=== PATIENT | female | born 1980 | race African-American/Black ===

== ENCOUNTER 2017-02-12 18:24 | Emergency (ER) | payer OTHER ==
[2017-02-12 18:28] VITALS: BP 112/82; PULSE 66; TEMP 98.1; BMI 33.8
--- NOTE | 2017-02-12 19:24 | PDOC ---
History of Present Illness - History of Present Illness Initial Comments: 02/12/17 20:48 The patient is a 36 year old female, with a significant past medical history of GI ulcers, H-pylori (diagnosed in 2016) who presents to the emergency department with recurrent abdominal pain. Patient states her epigastric tenderness worsens when supine. She said that she had an endoscopy done in 2015 and another one in April of this year. She stated that she began to feel better but her epigastric pain came back recently. She denies recent fevers, chills, headache or dizziness. She denies recent nausea, vomit, diarrhea or constipation. She denies recent dysuria, frequency, urgency or hematuria. She denies recent chest pain or shortness of breath. Allergies: shellfish, tramadol. Past surgical history: None reported. Social history: Nonsmoker. Denies EtOH use and recreational drug use. Primary Care Physician: David Garcia <Marian Kyle - Last Filed: 02/12/17 20:48> <Fernanda Nj - Last Filed: 02/12/17 22:28> - General Chief Complaint: Pain Stated Complaint: STOMACH PAIN Time Seen by Provider: 02/12/17 19:23 Past History <Marian Kyle - Last Filed: 02/12/17 20:48> - Past Medical History Asthma: Yes - Immunization History Td Vaccination: Yes - Suicide/Smoking/Psychosocial Hx Smoking Status: No Smoking History: Never smoked Years of Tobacco Use: 0 Number of Cigarettes Smoked Daily: 1 Cigars Per Day: 1 Information on smoking cessation initiated: Yes 'Breaking Loose' booklet given: 03/01/16 Hx Alcohol Use: No Drug/Substance Use Hx: No Substance Use Type: None <Fernanda Nj - Last Filed: 02/12/17 22:28> - Past Medical History Allergies/Adverse Reactions: Allergies Allergy/AdvReac Type Severity Reaction Status Date / Time shellfish derived Allergy Severe Difficulty Verified 02/12/17 18:28 Breathing tramadol Allergy Severe Vomiting Verified 02/12/17 18:28 Home Medications: Ambulatory Orders Albuterol Sulfate Inhaler - [Ventolin HFA Inhaler -] 1 - 2 inh PO QID PRN Famotidine [Pepcid] 40 mg PO DAILY #10 tablet 03/02/16 Acetaminophen [Tylenol] 650 mg PO DAILY PRN 03/18/16 Ibuprofen [Motrin -] 600 mg PO QID #28 tablet 04/16/16 Review of Systems - Review of Systems Able to Perform ROS?: Yes Comments:: 02/12/17 20:48 CONSTITUTIONAL: Absent: fever, no chills, no fatigue EYES: Absent: visual changes ENT: Absent: ear pain, no sore throat CARDIOVASCULAR: Absent: chest pain, no palpitations RESPIRATORY: Absent: cough, no SOB GI: Present: abdominal pain Absent: no nausea, no vomiting, no constipation, no diarrhea GENITOURINARY: Absent: dysuria, no frequency, no hematuria MUSCULOSKELETAL: Absent: back pain, no arthralgia, no myalgia SKIN: Absent: rash NEURO: Absent: headache <Marian Kyle - Last Filed: 02/12/17 20:48> *Physical Exam - Vital Signs Last Vital Signs Temp Pulse Resp BP Pulse Ox 98.1 F 66 18 112/82 98 02/12/17 18:26 02/12/17 18:26 02/12/17 18:26 02/12/17 18:26 02/12/17 18:26 - Physical Exam Comments: 02/12/17 20:48 GENERAL: Well-appearing, well-nourished. No apparent distress. HEENT: Normocephalic, atraumatic. PERRL, EOM intact. CARDIOVASCULAR: Normal S1, S2. Regular rate and rhythm. PULMONARY: Clear to auscultation bilaterally. ABDOMEN: +epigastric tenderness & discomfort. No guarding, no rebound. Soft, non- distended. EXTREMITIES: Normal ROM in all four extremities. No gross deformities. SKIN: Warm, dry. No rash NEUROLOGICAL: No focal neurological deficits. <Marian Kyle - Last Filed: 02/12/17 20:48> - Vital Signs Last Vital Signs Temp Pulse Resp BP Pulse Ox 98.1 F 66 18 112/82 98 02/12/17 18:26 02/12/17 18:26 02/12/17 18:26 02/12/17 18:26 02/12/17 18:26 <Fernanda Nj - Last Filed: 02/12/17 22:28> ED Treatment Course - LABORATORY CBC & Chemistry Diagram: 02/12/17 20:36 02/12/17 20:36 - ADDITIONAL ORDERS Additional order review: 02/12/17 20:36 RBC 4.18 MCV 81.9 MCHC 33.4 RDW 15.8 H MPV 7.2 L Neutrophils % 61.6 Lymphocytes % 30.5 Monocytes % 5.8 Eosinophils % 1.7 Basophils % 0.4 - Medications Given in the ED: ED Medications Discontinued Medications Generic Name Dose Route Start Last Admin Trade Name Angelito PRN Reason Stop Dose Admin Al Hydroxide/Mg Hydroxide 30 ml 02/12/17 20:15 02/12/17 20:43 Mylanta Suspension - PO 02/12/17 20:16 30 ml ONCE ONE Administration Ranitidine HCl 150 mg 02/12/17 20:17 02/12/17 20:43 Zantac - PO 02/12/17 20:18 150 mg ONCE ONE Administration <Marian Kyle - Last Filed: 02/12/17 20:48> - LABORATORY CBC & Chemistry Diagram: 02/12/17 20:36 02/12/17 20:36 <Fernanda Nj - Last Filed: 02/12/17 22:28> Medical Decision Making - Medical Decision Making 02/12/17 20:08 36 yo female has had 2 days of epigastric pain that is nonradiating. DENIES nausea ,vomiting or diarrhea, fever or chills, substernal chest pain or shortness of breath. She denies that the pain radiates to her back. She has no back pain at this time HPI H Pylori and had 2 endoscopies the last one being Apr 2016. Her GI specialist has had her on amytripyline for her GI symptoms PSH none -She had a gallbladder ultrasound done here February 2016 that was totally unremarkable abd exam is essentially benign plan labs 02/12/17 22:11 CBC, chemistries are within normal limits. 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 <Fernanda Nj - Last Filed: 02/12/17 22:28> *DC/Admit/Observation/Transfer - Attestations Scribe Attestion: 02/12/17 20:49 Documentation prepared by Marian Kyle, acting as medical doctor md for Fernanda Nj MD <Marian Kyle - Last Filed: 02/12/17 20:48> <ClemFernanda Nvaarro - Last Filed: 02/12/17 22:28> Diagnosis at time of Disposition: Epigastric pain - Discharge Dispostion Disposition: HOME Condition at time of disposition: Stable - Referrals Referrals: David Garcia MD [Primary Care Provider] - - Patient Instructions Printed Discharge Instructions: DI for Epigastric Pain Additional Instructions: It is important to follow up with your stomach doctor for further evaluation of you abdominal pain Return for any worsening symptoms
[2017-02-12] MEDS ORDERED: MAG HYDROX/AL HYDROX/SIMETH 355 ML ORAL.SUSP PO ONE (20:15)
[2017-02-12] MEDS ORDERED: RANITIDINE HCL 150 MG TABLET (FP) PO ONE (20:17)
[2017-02-12 20:42] LABS: BASOPHIL 0.4 % (0-2.0); EOSINOPHIL 1.7 % (0-4.5); MCH 27.4 pg (25.7-33.7); MCHC 33.4 g/dl (32.0-36.0); MEAN CELL VOLUME 81.9 fl (80-96); MEAN PLT VOLUME 7.2 fl (7.5-11.1); NEUTROPHILS 61.6 % (42.8-82.8); PLATELET COUNT 294 K/MM3 (134-434); RDW 15.8 % (11.6-15.6)
[2017-02-12] MEDS ORDERED: MAG HYDROX/AL HYDROX/SIMETH 30 ML UNIT-DOSE CUP ONE (20:50)
[2017-02-12] MEDS ORDERED: RANITIDINE HCL 150 MG TABLET (FP) ONE (20:50)
[2017-02-12 21:06] LABS: ALBUMIN 3.6 g/dl (3.4-5.0); ALK PHOS 70 U/L (45-117); ANION GAP 8 (8-16); BILIRUBIN,TOTAL 0.4 mg/dL (0.2-1.0); CALCIUM 8.8 mg/dL (8.5-10.1); CO2 23 mmol/L (21-32); CREATININE 0.6 mg/dL (0.55-1.02); GLUCOSE,RANDOM 109 mg/dL (74-106); SGOT/AST 10 U/L (15-37); SGPT/ALT 21 U/L (12-78); TOT PROT 6.8 g/dl (6.4-8.2)
== END 2017-02-12 23:15 | disposition home or self-care (01) ==
LOC: JER 18:24
DX: R10.13 Epigastric pain (principal); J45.909 Unspecified asthma, uncomplicated; Z72.0 Tobacco use
CPT/HCPCS: 36415; 80053; 83690; 85025; 99282-25

== ENCOUNTER 2017-04-15 02:33 | Emergency (ER) | payer OTHER ==
[2017-04-15] MEDS ORDERED: KETOROLAC TROMETHAMINE 15 MG/ML VIAL IM ONE (03:35)
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
[2017-04-15 04:13] VITALS: BP 124/75; PULSE 77; TEMP 98.7; BMI 33.8
[2017-04-15] MEDS ORDERED: KETOROLAC TROMETHAMINE 30 MG/1 ML VIAL ONE (05:30)
[2017-04-15] MEDS ORDERED: KETOROLAC TROMETHAMINE 15 MG/ML VIAL ONE (05:37)
[2017-04-15] MEDS ORDERED: IBUPROFEN 400 MG TABLET (FP) PO ONE ×2 (05:40→05:41)
== END 2017-04-15 06:13 | disposition home or self-care (01) ==
LOC: JER 02:33
PROC: 3E0233Z Introduction of Anti-inflammatory into Muscle, Percutaneous Approach (ICD-10-PCS; principal; 2017-04-15)
DX: M54.5 Low back pain (principal); V43.52XA Car driver injured in collision with other type car in traffic accident, initial encounter; Y93.89 Activity, other specified; Y92.410 Unspecified street and highway as the place of occurrence of the external cause; J45.909 Unspecified asthma, uncomplicated
CPT/HCPCS: 72100-TC; 84703; 99282-25

== ENCOUNTER 2017-06-10 20:00 | Emergency (ER) | payer SELFPAY ==
[2017-06-10] MEDS ORDERED: ASPIRIN 81 MG CHEWABLE TABLETS PO ONE (20:30)
--- NOTE | 2017-06-10 20:31 | PDOC ---
Rapid Medical Evaluation Medical Evaluation: Allergies Allergy/AdvReac Type Severity Reaction Status Date / Time shellfish derived Allergy Severe Difficulty Verified 02/12/17 18:28 Breathing tramadol Allergy Severe Vomiting Verified 02/12/17 18:28 06/10/17 20:26 I have performed a brief in-person evaluation of this patient. The patient presents with a chief complaint of: radiating R arm pain since last week, chest "tightness" today, chills, cough since yesterday, hx of asthma Pertinent physical exam findings: lungs ctab, RR 30 I have ordered the following: labs, ekg, cxr The patient will proceed to the ED for further evaluation. Discharge Disposition - Diagnosis Chest pain - Referrals - Patient Instructions - Post Discharge Activity
[2017-06-10] MEDS ORDERED: ASPIRIN 81 MG CHEWABLE TABLETS ONE (20:37)
[2017-06-10 20:39] VITALS: BMI 29.6
[2017-06-10 21:00] LABS: BASO % 0.5 % (0-2.0); EOS % 1.9 % (0-4.5); HEMATOCRIT 38.6 % (32.4-45.2); HEMOGLOBIN 12.6 GM/dL (10.7-15.3); LYMPH % 13.5 % (8-40); MCH 27.2 pg (25.7-33.7); MCHC 32.7 g/dl (32.0-36.0); MEAN CELL VOLUME 83.2 fl (80-96); MEAN PLT VOLUME 7.5 fl (7.5-11.1); MONO % 11.1 % (3.8-10.2); PLATELET COUNT 340 K/MM3 (134-434); RBC 4.64 M/mm3 (3.60-5.2); RDW 15.9 % (11.6-15.6); WHITE BLOOD COUNT 5.8 K/mm3 (4.0-10.0)
[2017-06-10 21:22] LABS: INR 1.17 (0.82-1.09); PROTHROMBIN TIME (PATIENT) 13.2 SEC (9.98-11.88)
[2017-06-10 21:29] LABS: ANION GAP 6 (8-16); BILIRUBIN,TOTAL 0.2 mg/dL (0.2-1.0); BLOOD UREA NITROGEN 11 mg/dL (7-18); CALCIUM 8.7 mg/dL (8.5-10.1); CHLORIDE 103 mmol/L (98-107); CO2 28 mmol/L (21-32); CREATININE 0.8 mg/dL (0.55-1.02); GLUCOSE,RANDOM 157 mg/dL (74-106); MAGNESIUM 1.7 mg/dL (1.8-2.4); POTASSIUM 4.1 mmol/L (3.5-5.1); SGOT/AST 10 U/L (15-37); SGPT/ALT 21 U/L (12-78); SODIUM 137 mmol/L (136-145); TOT PROT 7.8 g/dl (6.4-8.2)
[2017-06-10 21:31] LABS: ALK PHOS 90 U/L (45-117)
--- NOTE | 2017-06-10 21:59 | PDOC ---
History of Present Illness - General Chief Complaint: Chest Pain Stated Complaint: CHEST PAIN Time Seen by Provider: 06/10/17 20:31 - History of Present Illness Initial Comments: 06/10/17 22:01 Ms. Thompson is a 37 yo female w/ pmh of GI ulcers and H-pylori (diagnosed in 2016) who presents c/o a 1 day history of dry cough with fever, chills, nausea, and body aches. She reports that she does not have any energy and that she feels "flu-pamela." She also complains of midline chest pain over this same time period. Ms. Thompson also reports a 1 week history of right arm pain that she says started as a muscle spasm and has progressed to involve any movement involving her right shoulder. The patient denies headache and dizziness. Denies vomit, diarrhea and constipation. Denies dysuria, frequency, urgency and hematuria. Allergies: Shellfish, tramadol Past History - Past Medical History Allergies/Adverse Reactions: Allergies Allergy/AdvReac Type Severity Reaction Status Date / Time shellfish derived Allergy Severe Difficulty Verified 02/12/17 18:28 Breathing tramadol Allergy Severe Vomiting Verified 02/12/17 18:28 Home Medications: Ambulatory Orders Albuterol Sulfate Inhaler - [Ventolin HFA Inhaler -] 1 - 2 inh PO QID PRN Acetaminophen [Tylenol] 650 mg PO DAILY PRN 03/18/16 Oseltamivir Phosphate [Tamiflu] 75 mg PO BID #10 capsule 06/10/17 Asthma: Yes COPD: No - Immunization History Td Vaccination: Yes - Suicide/Smoking/Psychosocial Hx Smoking Status: No Smoking History: Never smoked Years of Tobacco Use: 0 Have you smoked in the past 12 months: No Number of Cigarettes Smoked Daily: 1 Cigars Per Day: 1 Information on smoking cessation initiated: No 'Breaking Loose' booklet given: 03/01/16 Hx Alcohol Use: No Drug/Substance Use Hx: No Substance Use Type: None Review of Systems - Review of Systems Comments:: 06/10/17 22:14 GENERAL/CONSTITUTIONAL: +Subjective fever and chills with generalized weakness feeling.. HEAD, EYES, EARS, NOSE AND THROAT: No change in vision. No ear pain or discharge. No sore throat. CARDIOVASCULAR: +Midline chest pain with associated cough. RESPIRATORY: No wheezing or hemoptysis. GASTROINTESTINAL: +Nausea without vomiting, diarrhea or constipation. GENITOURINARY: No dysuria, frequency, or change in urination. MUSCULOSKELETAL: +Generalized body aches SKIN: No rash NEUROLOGIC: No headache, vertigo, loss of consciousness, or change in strength/ sensation. ENDOCRINE: No increased thirst. No abnormal weight change HEMATOLOGIC/LYMPHATIC: No anemia, easy bleeding, or history of blood clots. ALLERGIC/IMMUNOLOGIC: No hives or skin allergy. *Physical Exam - Vital Signs Last Vital Signs Temp Pulse Resp BP Pulse Ox 98.9 F 100 H 30 H 126/77 100 06/10/17 20:31 06/10/17 20:31 06/10/17 20:31 06/10/17 20:31 06/10/17 20:31 - Physical Exam Comments: 06/10/17 22:15 GENERAL: Awake, alert, and fully oriented, in no acute distress HEAD: No signs of trauma, normocephalic, atraumatic EYES: PERRLA, EOMI, sclera anicteric, conjunctiva clear ENT: Auricles normal inspection, hearing grossly normal, nares patent, oropharynx clear without exudates. Moist mucosa NECK: Normal ROM, supple, no lymphadenopathy, JVD, or masses LUNGS: +Reproducible chest pain to mid sternum. No distress, speaks full sentences, clear to auscultation bilaterally HEART: Regular rate and rhythm, normal S1 and S2, no murmurs, rubs or gallops, peripheral pulses normal and equal bilaterally. ABDOMEN: Soft, nontender, normoactive bowel sounds. No guarding, no rebound. No masses EXTREMITIES: +R Shoulder tender to palpation. Cooperation incomplete due to pain for proper strength assessment. Normal inspection, no edema. No clubbing or cyanosis. NEUROLOGICAL: Cranial nerves II through XII grossly intact. Normal speech, normal gait, no focal sensorimotor deficits SKIN: Warm, Dry, normal turgor, no rashes or lesions noted. ED Treatment Course - LABORATORY CBC & Chemistry Diagram: 06/10/17 20:44 06/10/17 20:44 - ADDITIONAL ORDERS Additional order review: Laboratory Results 06/10/17 06/10/17 06/10/17 20:44 20:44 20:44 PT with INR 13.20 H INR 1.17 H Sodium 137 Potassium 4.1 Chloride 103 Carbon Dioxide 28 Anion Gap 6 L BUN 11 Creatinine 0.8 Creat Clearance w eGFR > 60 Random Glucose 157 H Calcium 8.7 Magnesium 1.7 L Total Bilirubin 0.2 D AST 10 L ALT 21 Alkaline Phosphatase 90 Creatine Kinase 149 Troponin I < 0.02 Total Protein 7.8 Albumin 4.0 Urine HCG, Qual Negative 06/10/17 20:44 RBC 4.64 MCV 83.2 MCHC 32.7 RDW 15.9 H MPV 7.5 Neutrophils % 73.0 Lymphocytes % 13.5 D Monocytes % 11.1 H D Eosinophils % 1.9 Basophils % 0.5 Medical Decision Making - Medical Decision Making 06/10/17 22:47 Ms. Thompson is a 37 yo female presenting w/ symptoms c/w influenza. Labs grossly normal as below. Tamiflu given for treatment. R shoulder xray ordered for evaluation of R arm pain/weakness. CXR negative for acute pathology. Right shoulder positive for tendonitis on XR. Ortho f/u provided. Discharging patient to home. Laboratory Results - last 24 hr 06/10/17 06/10/17 06/10/17 20:44 20:44 20:44 WBC 5.8 RBC 4.64 Hgb 12.6 D Hct 38.6 MCV 83.2 MCH 27.2 MCHC 32.7 RDW 15.9 H Plt Count 340 MPV 7.5 Neutrophils % 73.0 Lymphocytes % 13.5 D Monocytes % 11.1 H D Eosinophils % 1.9 Basophils % 0.5 PT with INR 13.20 H INR 1.17 H Sodium 137 Potassium 4.1 Chloride 103 Carbon Dioxide 28 Anion Gap 6 L BUN 11 Creatinine 0.8 Creat Clearance w eGFR > 60 Random Glucose 157 H Calcium 8.7 Magnesium 1.7 L Total Bilirubin 0.2 D AST 10 L ALT 21 Alkaline Phosphatase 90 Creatine Kinase 149 Troponin I < 0.02 Total Protein 7.8 Albumin 4.0 Urine HCG, Qual 06/10/17 20:44 WBC RBC Hgb Hct MCV MCH MCHC RDW Plt Count MPV Neutrophils % Lymphocytes % Monocytes % Eosinophils % Basophils % PT with INR INR Sodium Potassium Chloride Carbon Dioxide Anion Gap BUN Creatinine Creat Clearance w eGFR Random Glucose Calcium Magnesium Total Bilirubin AST ALT Alkaline Phosphatase Creatine Kinase Troponin I Total Protein Albumin Urine HCG, Qual Negative *DC/Admit/Observation/Transfer Diagnosis at time of Disposition: Tendonitis Chest pain Qualifiers: Chest pain type: unspecified Qualified Code(s): R07.9 - Chest pain, unspecified - Discharge Dispostion Disposition: HOME - Prescriptions Prescriptions: Oseltamivir Phosphate [Tamiflu] 75 mg PO BID #10 capsule - Referrals Referrals: Raymond Rico MD [Staff Physician] - - Patient Instructions Printed Discharge Instructions: DI for Atypical Chest Pain, DI for Influenza - - Adult, DI for Tendinitis Additional Instructions: You were evaluated today in the ER and found to have influenza. A prescription for tamiflu has been called to your pharmacy to shorten flu course. You were also noted to have tendonitis on x-ray. Please make follow-up appointment with provided orthopedics information for outpatient evaluation. Please return if any return of fever, pain, or other concerning symptoms. - Post Discharge Activity
[2017-06-10] MEDS ORDERED: KETOROLAC TROMETHAMINE 60 MG/2 ML VIAL IM ONE (22:19)
[2017-06-10] MEDS ORDERED: ACETAMINOPHEN 500 MG TABLET (FP) PO ONE (22:23)
[2017-06-10] MEDS ORDERED: OSELTAMIVIR PHOSPHATE 75 MG CAPSULE PO ONE (22:30)
[2017-06-10] MEDS ORDERED: ACETAMINOPHEN 325 MG TABLET (FP) ONE (22:35)
[2017-06-10] MEDS ORDERED: OSELTAMIVIR PHOSPHATE 75 MG CAPSULE ONE (23:07)
[2017-06-11 01:04] VITALS: BP 110/76; PULSE 92; TEMP 98.4
--- NOTE | 2017-06-11 08:54 | EKG ---
Test Reason : Blood Pressure : / mmHG Vent. Rate : 099 BPM Atrial Rate : 099 BPM P-R Int : 150 ms QRS Dur : 078 ms QT Int : 338 ms P-R-T Axes : 030 041 030 degrees QTc Int : 433 ms NORMAL SINUS RHYTHM NONSPECIFIC T WAVE ABNORMALITY ABNORMAL ECG NO PREVIOUS ECGS AVAILABLE Confirmed by Rafat Singer MD ([id number]) on 06/11/2017 8:53:47 AM Referred By: Confirmed By:Rafat Singer MD
== END 2017-06-11 01:04 | disposition home or self-care (01) ==
LOC: JER 20:00
DX: R07.89 Other chest pain (principal); M75.81 Other shoulder lesions, right shoulder; J11.1 Influenza due to unidentified influenza virus with other respiratory manifestations
CPT/HCPCS: 36415; 71046-TC-FY; 73030-TC-RT-FY; 80053; 82550; 83735; 84484; 84703; 85025; 85610; 93005; 93010; 99284-25

== ENCOUNTER 2018-01-18 23:06 | Emergency (ER) | payer SELFPAY ==
[2018-01-18 23:10] VITALS: BP 118/75; PULSE 72; TEMP 98.2; BMI 35.4
[2018-01-18] MEDS ORDERED: DIPHTH,PERTUSS(ACELL),TET 0.5 ML DISP.SYRIN IM ONE (23:23)
--- NOTE | 2018-01-18 23:23 | PDOC ---
History of Present Illness - General Chief Complaint: Bite Stated Complaint: BIT BY DOG Time Seen by Provider: 01/18/18 23:15 History Source: Patient Exam Limitations: No Limitations - History of Present Illness Initial Comments: 01/19/18 00:33 Best Contact: PCP: N/A Pmhx: Asthma Pshx: 0 Allergies: Tramadol/hives/itch FH:0 Social Hx: Cigarettes/ social Alcohol/ Social Drugs/0 LMP: 12/29/2017 37-year-old female who is right hand dominant presents to the ER complaining of a dog bite to the left hand. Patient states while playing with her pitbull who' s immunizations are up-to-date. Her dog accidentally bit her left hand approximately one hour ago. Patient denies extremity numbness or tingling sensation. Pain is described as 8/10 sharp nonradiating intermittent discomfort patient states the pain is exacerbated on touch and alleviated at rest. Patient states unknown last tetanus Past History - Past Medical History Allergies/Adverse Reactions: Allergies Allergy/AdvReac Type Severity Reaction Status Date / Time shellfish derived Allergy Severe Difficulty Verified 01/18/18 23:10 Breathing tramadol Allergy Severe Vomiting Verified 01/18/18 23:10 Home Medications: Ambulatory Orders Albuterol Sulfate Inhaler - [Ventolin HFA Inhaler -] 1 - 2 inh PO QID PRN Acetaminophen [Tylenol] 650 mg PO DAILY PRN 03/18/16 Oseltamivir Phosphate [Tamiflu] 75 mg PO BID #10 capsule 06/10/17 Amoxicillin/Potassium Clav [Augmentin 875-125 Tablet] 1 each PO BID #10 tablet 01/18/18 Anemia: No Asthma: Yes Cancer: No Cardiac Disorders: No CVA: No COPD: No DVT: No Dementia: No Diabetes: No Dialysis: No GI Disorders: Yes (Gastric Ulcers) Disorders: No HTN: No Hypercholesterolemia: No Kidney Stones: No Liver Disease: No Psychiatric Problems: No Seizures: No Thyroid Disease: No Lung CA: No - Immunization History Td Vaccination: Yes - Suicide/Smoking/Psychosocial Hx Smoking Status: No Smoking History: Never smoked Years of Tobacco Use: 0 Have you smoked in the past 12 months: Yes Number of Cigarettes Smoked Daily: 1 Cigars Per Day: 1 'Breaking Loose' booklet given: 03/01/16 Hx Alcohol Use: No Drug/Substance Use Hx: No Substance Use Type: None Trauma Specific PMHX - Complaint Specific PMHX Arthritis: No Back Injury: No Neck Injury: No Hx Sacro Iliac Joint Dysfunction: No Review of Systems - Review of Systems Able to Perform ROS?: Yes Comments:: 01/19/18 00:43 CONSTITUTIONAL: Absent: fever, chills, diaphoresis, generalized weakness, malaise, loss of appetite MUSCULOSKELETAL: Left hand pw / dorsal pain to 3rd mc/distal Denies any numbness/tingling Absent: myalgia, arthralgia, joint swelling SKIN: Absent: rash, itching, pallor HEMATOLOGIC/IMMUNOLOGIC: Absent: easy bleeding, easy bruising, lymphadenopathy, frequent infections Is the patient limited Lithuanian proficient: No *Physical Exam - Vital Signs Last Vital Signs Temp Pulse Resp BP Pulse Ox 98.2 F 72 18 118/75 98 01/18/18 23:09 01/18/18 23:09 01/18/18 23:09 01/18/18 23:01/18/18 23:09 - Physical Exam Comments: 01/19/18 00:44 GENERAL: Well developed, well nourished. Awake and alert. No acute distress. MUSCULOSKELETAL Left hand PW to dorsal 3rd distal mc 2 point discrimination intact F.R.O.M. cap refill <2sec neg lymphangitis Normal range of motion at all joints. No bony deformities or tenderness. No CVA tenderness. EXTREMITIES: No cyanosis. No clubbing. No edema. No calf tenderness. SKIN: Warm and dry. Normal capillary refill. No rashes. No jaundice. Procedure: left hand dorsal 3rd distal mc+PW Betadine prep 1% lidocaine=1.5cc NS /betadine irrgation /copious Telfa kerlix ED Treatment Course - RADIOLOGY Radiograph Interpretation: 01/19/18 00:39 Xray left hand 3c neg FB, FX *DC/Admit/Observation/Transfer Diagnosis at time of Disposition: Dog bite of left hand Qualifiers: Encounter type: initial encounter Qualified Code(s): S61.452A - Open bite of left hand, initial encounter - Discharge Dispostion Disposition: HOME Condition at time of disposition: Stable Decision to Admit order: No - Prescriptions Prescriptions: Amoxicillin/Potassium Clav [Augmentin 875-125 Tablet] 1 each PO BID #10 tablet - Referrals Referrals: Riccardo Garcia MD [Staff Physician] - - Patient Instructions Printed Discharge Instructions: How to Care for a Domestic Animal Bite, DI for Dog Bite Additional Instructions: It is important to keep your left hand elevated. Follow-up with a hand surgeon listed on your discharge this week Return back to the emergency department in 2 days for wound check Return back to the ER for any signs of infection: Red streaks, swelling, severe pain or numbness . - Post Discharge Activity
[2018-01-18] MEDS ORDERED: AMOX TR/POT CLAV 875MG/125MG TABLETS (FP) PO ONE (23:24)
[2018-01-18] MEDS ORDERED: AMOX TR/POT CLAV 875MG/125MG TABLETS (FP) ONE (23:55)
== END 2018-01-19 01:26 | disposition home or self-care (01) ==
LOC: JER 23:06 → JERFT 23:06
DX: S61.452A Open bite of left hand, initial encounter (principal); W54.0XXA Bitten by dog, initial encounter; Y93.K9 Activity, other involving animal care; Y92.038 Other place in apartment as the place of occurrence of the external cause; Y99.8 Other external cause status
CPT/HCPCS: 73130-TC-LR-FY; 90715; 99281-25

== ENCOUNTER 2018-01-22 14:56 | Emergency (ER) | payer SELFPAY ==
[2018-01-22 15:03] VITALS: BP 117/72; PULSE 66; TEMP 98.1; BMI 35.4
--- NOTE | 2018-01-22 15:04 | PDOC ---
Rapid Medical Evaluation Chief Complaint: Revisit,Wound Recheck Time Seen by Provider: 01/22/18 15:00 Medical Evaluation: Allergies Allergy/AdvReac Type Severity Reaction Status Date / Time shellfish derived Allergy Severe Difficulty Verified 01/18/18 23:10 Breathing tramadol Allergy Severe Vomiting Verified 01/18/18 23:10 01/22/18 15:00 I have performed a brief in-person evaluation of this patient. The patient presents with a chief complaint of:follow up wound check left hand dog bite seen here saturday night . Pertinent physical exam findings: left hand pain dorsal surface with healing wound approximately 0.5cm scabbed, no redness no drainage I have ordered the following:nothing The patient will proceed to the ED for further evaluation.
--- NOTE | 2018-01-22 15:09 | PDOC ---
Suture Removal/Wound Check HPI - History of Present Illness Chief Complaint: Revisit,Wound Recheck Stated Complaint: WOUND CHECK Time Seen by Provider: 01/22/18 15:00 History Source: Yes: Patient Exam Limitations: Yes: No Limitations Treated at: [facility] ED - Previous ED Treatment Type of procedure performed on last visit: Yes: Other (dog bite) Tetanus Immunization: Yes: Up to Date, Given at last ED visit Antibiotics Prescribed: Yes (augmentin) - Onset of Previous Treatment Date of Occurence: 01/18/18 Past History - Past Medical History Allergies/Adverse Reactions: Allergies Allergy/AdvReac Type Severity Reaction Status Date / Time shellfish derived Allergy Severe Difficulty Verified 01/22/18 15:03 Breathing tramadol Allergy Severe Vomiting Verified 01/22/18 15:03 Home Medications: Ambulatory Orders Albuterol Sulfate Inhaler - [Ventolin HFA Inhaler -] 1 - 2 inh PO QID PRN Acetaminophen [Tylenol] 650 mg PO DAILY PRN 03/18/16 Oseltamivir Phosphate [Tamiflu] 75 mg PO BID #10 capsule 06/10/17 Amoxicillin/Potassium Clav [Augmentin 875-125 Tablet] 1 each PO BID #10 tablet 01/18/18 Anemia: No Asthma: Yes Cancer: No Cardiac Disorders: No CVA: No COPD: No DVT: No Dementia: No Diabetes: No Dialysis: No GI Disorders: Yes (Gastric Ulcers) Disorders: No HTN: No Hypercholesterolemia: No Kidney Stones: No Liver Disease: No Psychiatric Problems: No Seizures: No Thyroid Disease: No Lung CA: No - Immunization History Td Vaccination: Yes - Suicide/Smoking/Psychosocial Hx Smoking Status: No Smoking History: Never smoked Years of Tobacco Use: 0 Have you smoked in the past 12 months: Yes Number of Cigarettes Smoked Daily: 1 Cigars Per Day: 1 Information on smoking cessation initiated: Yes 'Breaking Loose' booklet given: 01/22/18 Hx Alcohol Use: No Drug/Substance Use Hx: No Substance Use Type: None Suture Removal/Wound Check PE - Physical Exam Laceration/Wound Check Symptoms: reports: Pain, Improved Comments: 01/22/18 15:06 left hand dorsal surface with 0.5cm healing dog bite, no redness no drainage no fluctuance , nv intact FROM of the hand Current Severity Level: Moderate Maximum Severity Level: Severe Location of Laceration/Wound: left: Hand (dorsal surface 0.5cm ) *Review of Systems - Review of Systems Able to Perform ROS?: Yes Constitutional: No: Symptoms Reported HEENTM: No: Recent change in vision *Physical Exam - Vital Signs Last Vital Signs Temp Pulse Resp BP Pulse Ox 98.1 F 66 17 117/72 100 01/22/18 15:00 01/22/18 15:00 01/22/18 15:00 01/22/18 15:00 01/22/18 15:00 - Physical Exam General Appearance: Yes: Nourished, Appropriately Dressed Integumentary: positive: Normal Color, Dry, Warm, Other (left dorsal surface with well healed 0.5cm bite , scabbed, no drainage no discharge no erythema ) Neurologic: positive: Alert, Normal Mood/Affect, Motor Strength 5/5 Medical Decision Making - Medical Decision Making 01/22/18 15:07 cc: wound check dog bite to hand well healed improving continue antibiotics *DC/Admit/Observation/Transfer Diagnosis at time of Disposition: Visit for wound check - Discharge Dispostion Disposition: HOME Condition at time of disposition: Improved - Referrals - Patient Instructions Additional Instructions: continue all the antibiotics wash daily with antibacterial soap and water such as Dial or Lever 2000 apply a thin layer of bacitracin once a day to the wound Return if any worsening symptoms - Post Discharge Activity
== END 2018-01-22 15:20 | disposition home or self-care (01) ==
LOC: JERFT 14:56
DX: Z48.00 Encounter for change or removal of nonsurgical wound dressing (principal)
CPT/HCPCS: 99281-25

== ENCOUNTER 2018-08-26 14:15 | Emergency (ER) | payer SELFPAY ==
[2018-08-26] MEDS ORDERED: SODIUM CHLORIDE 1,000 ML IV STA (14:19)
--- NOTE | 2018-08-26 14:22 | PDOC ---
Rapid Medical Evaluation Time Seen by Provider: 08/26/18 14:18 Medical Evaluation: Allergies Allergy/AdvReac Type Severity Reaction Status Date / Time shellfish derived Allergy Severe Difficulty Verified 01/22/18 15:03 Breathing tramadol Allergy Severe Vomiting Verified 01/22/18 15:03 08/26/18 14:18 I have performed a brief in-person evaluation of this patient. The patient presents with a chief complaint of: polyuria and polydipsia. Had FS> 500 at home Pertinent physical exam findings: MM moist. VSS. AF. No CVAT. I have ordered the following: labs, urine The patient will proceed to the ED for further evaluation. 08/26/18 14:21 Discharge Disposition - Diagnosis Frequency of urination and polyuria - Referrals - Patient Instructions - Post Discharge Activity
[2018-08-26 14:23] VITALS: BMI 35.6
--- NOTE | 2018-08-26 14:54 | PDOC ---
History of Present Illness - General Chief Complaint: Blood Sugar Problem Stated Complaint: HIGH BLOOD SUGAR Time Seen by Provider: 08/26/18 14:18 History Source: Patient - History of Present Illness Timing/Duration: other Past History - Past Medical History Allergies/Adverse Reactions: Allergies Allergy/AdvReac Type Severity Reaction Status Date / Time shellfish derived Allergy Severe Difficulty Verified 08/26/18 14:18 Breathing tramadol Allergy Severe Vomiting Verified 08/26/18 14:18 Home Medications: Ambulatory Orders Albuterol Sulfate Inhaler - [Ventolin HFA Inhaler -] 1 - 2 inh PO QID PRN Metformin HCl [Glucophage] 500 mg PO BID #60 tablet 08/26/18 Anemia: No Asthma: Yes Cancer: No Cardiac Disorders: No CVA: No COPD: No DVT: No Dementia: No Diabetes: No Dialysis: No GI Disorders: Yes (Gastric Ulcers) Disorders: No HTN: No Hypercholesterolemia: No Kidney Stones: No Liver Disease: No Psychiatric Problems: No Seizures: No Thyroid Disease: No Lung CA: No - Immunization History Td Vaccination: Yes - Suicide/Smoking/Psychosocial Hx Smoking Status: No Smoking History: Current some day smoker Years of Tobacco Use: 0 Have you smoked in the past 12 months: Yes Number of Cigarettes Smoked Daily: 1 Cigars Per Day: 1 Information on smoking cessation initiated: No 'Breaking Loose' booklet given: 01/22/18 Hx Alcohol Use: No Drug/Substance Use Hx: No Substance Use Type: None Review of Systems - Review of Systems Constitutional: No: Chills, Fever, Malaise, Weakness ABD/GI: No: Nausea, Vomiting, Abdominal cramping : No: Dysuria Endocrine: Yes: Increased Thirst, Increased Urine. No: Change in Weight *Physical Exam - Vital Signs Last Vital Signs Temp Pulse Resp BP Pulse Ox 97.9 F 75 18 121/73 98 08/26/18 14:19 08/26/18 14:19 08/26/18 14:19 08/26/18 14:08/26/18 14:19 - Physical Exam General Appearance: Yes: Appropriately Dressed. No: Apparent Distress HEENT: positive: Normal Voice Neck: positive: Supple Respiratory/Chest: negative: Respiratory Distress Gastrointestinal/Abdominal: positive: Soft. negative: Tender Musculoskeletal: negative: CVA Tenderness Integumentary: negative: Dry, Warm Neurologic: positive: Fully Oriented, Alert, Normal Mood/Affect ED Treatment Course - LABORATORY CBC & Chemistry Diagram: 08/26/18 15:42 08/26/18 15:42 Medical Decision Making - Medical Decision Making 08/26/18 14:54 38 yo F, h/o asthma, p/w 3 weeks of polydipsia, polyuria and blurry vision. States her mother is a diabetic and checked patient's finger stick today, which read as above 500. Patient states she had dizziness yesterday that has since resolved. No abdominal pain, shortness of breath or fever. see exam New onset DM R/o complications, i,e DKA -IVF -insulin -labs -reassess 08/26/18 15:20 08/26/18 16:59 No evidence of DKA on labs. S/p IVF and insulin, pt's FS 274. Stable for discharge. Rx for metformin 500mg BID sent to pharmacy until pt can get to primary care. Reasons to return d/w pt *DC/Admit/Observation/Transfer Diagnosis at time of Disposition: Diabetes mellitus, new onset - Discharge Dispostion Disposition: HOME Condition at time of disposition: Good - Prescriptions Prescriptions: Metformin HCl [Glucophage] 500 mg PO BID #60 tablet - Referrals - Patient Instructions Printed Discharge Instructions: Lifestyle Changes as Effective as Drugs in Preventing Progression to Diabet, Complications of Type 2 Diabetes, Type 2 Diabetes Additional Instructions: It appears that you have new onset diabetes. Your sugar today was in the 500s initially, but with fluids and a dose of insulin it came down to 274 You were started on metformin to be taken as directed until you're able to make an appointment with a primary care physician once your insurance is activated next week In adequately managing diabetes, it is also important that you exercise and eat healthy. If symptoms worsen, return to the ED, otherwise follow-up with primary care for further management of your diabetes - Post Discharge Activity
[2018-08-26] MEDS ORDERED: INSULIN REGULAR HUMAN 100 UNITS/ML *VIAL IVPUSH ONE (14:55)
[2018-08-26] MEDS ORDERED: INSULIN REGULAR HUMAN 100 UNITS/ML *VIAL ONE (15:18)
[2018-08-26 15:52] LABS: BASO % 0.5 % (0-2.0); EOS % 1.4 % (0-4.5); HEMATOCRIT 38.8 % (32.4-45.2); HEMOGLOBIN 12.9 GM/dL (10.7-15.3); LYMPH % 30.7 % (8-40); MCH 28.1 pg (25.7-33.7); MCHC 33.2 g/dl (32.0-36.0); MEAN CELL VOLUME 84.7 fl (80-96); MEAN PLT VOLUME 8.7 fl (7.5-11.1); MONO % 6.1 % (3.8-10.2); NEUT % 61.3 % (42.8-82.8); PLATELET COUNT 281 K/MM3 (134-434); RBC 4.58 M/mm3 (3.60-5.2); RDW 14.9 % (11.6-15.6); URINE APPEARANCE CLEAR; URINE BILIRUBIN NEGATIVE (NEGATIVE); URINE COLOR YELLOW; URINE GLUCOSE (UA) 3+ (NEGATIVE); URINE KETONE NEGATIVE (NEGATIVE); URINE LEUK ESTERASE NEGATIVE (NEGATIVE); URINE NITRITE NEGATIVE (NEGATIVE); URINE PROTEIN NEGATIVE (NEGATIVE); URINE UROBILINOGEN 0.2 mg/dL (0.2-1.0); WHITE BLOOD COUNT 7.6 K/mm3 (4.0-10.0)
[2018-08-26 15:53] LABS: VENOUS PC02 39.7 mmHg (41-51); VENOUS PH 7.38 (7.31-7.41); VENOUS PO2 40.2 mmHg (30-40)
[2018-08-26 16:50] LABS: ALK PHOS 154 U/L (45-117); ANION GAP 9 MMOL/L (8-16); BILIRUBIN,TOTAL 0.3 mg/dL (0.2-1); BLOOD UREA NITROGEN 13 mg/dL (7-18); CALCIUM 9.7 mg/dL (8.5-10.1); CHLORIDE 95 mmol/L (98-107); CO2 23 mmol/L (21-32); CREATININE 0.9 mg/dL (0.55-1.3); POTASSIUM 4.6 mmol/L (3.5-5.1); SGOT/AST 7 U/L (15-37); SGPT/ALT 19 U/L (13-61); SODIUM 127 mmol/L (136-145); TOT PROT 7.6 g/dl (6.4-8.2)
[2018-08-26 16:52] LABS: GLUCOSE,RANDOM 539 mg/dL (74-106)
[2018-08-26 17:16] VITALS: BP 110/63; PULSE 79; TEMP 98.1
== END 2018-08-26 17:10 | disposition home or self-care (01) ==
LOC: JER 14:15
PROC: 3E0337Z Introduction of Electrolytic and Water Balance Substance into Peripheral Vein, Percutaneous Approach (ICD-10-PCS; principal; 2018-08-26)
PROC: 3E033VG Introduction of Insulin into Peripheral Vein, Percutaneous Approach (ICD-10-PCS; 2018-08-26)
DX: E11.9 Type 2 diabetes mellitus without complications (principal); Z79.84 Long term (current) use of oral hypoglycemic drugs; J45.909 Unspecified asthma, uncomplicated; F17.210 Nicotine dependence, cigarettes, uncomplicated
CPT/HCPCS: 36415; 80053; 81003; 82009; 82803; 82962; 83036; 84703; 85025; 87086; 99285-25; J7030

== ENCOUNTER 2020-10-07 09:07 | Day surgery (SDC) | payer OTHER ==
[2020-10-04 19:37] VITALS: BMI 34.7
[2020-10-07] MEDS ORDERED: BUPIVACAINE HCL/PF 2.5 MG/ML - 30 ML VIAL IJ ONE (11:38)
[2020-10-07] MEDS ORDERED: PROPOFOL 20 ML ONE ×2 (11:39)
[2020-10-07] MEDS ORDERED: MIDAZOLAM HCL 2 MG/2 ML SINGLE DOSE VIAL ONE (12:07)
[2020-10-07] MEDS ORDERED: BUPIVACAINE HCL/PF 0.25% (2.5MG/ML) 10 ML VIAL IJ ONE (12:25)
[2020-10-07] MEDS ORDERED: PROMETHAZINE HCL 25 MG/1 ML VIAL IVPUSH PRN (12:49)
[2020-10-07] MEDS ORDERED: ONDANSETRON 4 MG/2 ML VIAL IVPUSH PRN (12:49)
[2020-10-07] MEDS ORDERED: oxyCODONE HCL 5 MG TABLET PO PRN (12:49)
[2020-10-07] MEDS ORDERED: HYDROmorphone HCL/PF 1 MG/ML VIAL ONE (12:55)
[2020-10-07] MEDS ORDERED: HYDROmorphone HCl 2 MG/ML VIAL IVPUSH ONE (12:56)
[2020-10-07 14:58] VITALS: TEMP 97.8
[2020-10-07 18:56] VITALS: BP 121/65; PULSE 81
== END 2020-10-07 18:56 | disposition home or self-care (01) ==
LOC: FASU 09:07
PROVIDERS: ATTEND Orthopaedic Surgery
PROC: 0SBD4ZZ Excision of Left Knee Joint, Percutaneous Endoscopic Approach (ICD-10-PCS; 2020-10-07)
PROC: 0SBD4ZZ Excision of Left Knee Joint, Percutaneous Endoscopic Approach (ICD-10-PCS; 2020-10-07)
PROC: 0MNP4ZZ Release Left Knee Bursa and Ligament, Percutaneous Endoscopic Approach (ICD-10-PCS; 2020-10-07)
PROC: 0SBD4ZZ Excision of Left Knee Joint, Percutaneous Endoscopic Approach (ICD-10-PCS; principal; 2020-10-07 10:30)
DX: S83.242A Other tear of medial meniscus, current injury, left knee, initial encounter (principal); S83.282A Other tear of lateral meniscus, current injury, left knee, initial encounter; S83.8X2A Sprain of other specified parts of left knee, initial encounter; M65.862 Other synovitis and tenosynovitis, left lower leg; M25.362 Other instability, left knee; Y93.9 Activity, unspecified; Y92.9 Unspecified place or not applicable
CPT/HCPCS: 82962; 84703; 94760

== ENCOUNTER 2021-08-07 04:58 | Inpatient (IN) | payer OTHER ==
[2021-08-02 13:26] VITALS: BMI 36.6
[2021-08-07] MEDS ORDERED: DEXMEDETOMIDINE HCL 200 MCG/2 ML IVPB ONE (07:48)
[2021-08-07] MEDS ORDERED: BUPIVACAINE HCL/PF 0.5% (5MG/ML) 10 ML VIAL ONE (07:48)
[2021-08-07] MEDS ORDERED: BUPIVACAINE LIPOSOME/PF (EXPAREL) 266 MG/20 ML VIAL ONE (07:49)
[2021-08-07] MEDS ORDERED: PROPOFOL 20 ML ONE ×3 (07:52→12:47)
[2021-08-07] MEDS ORDERED: HYDROmorphone HCl 2 MG/ML VIAL ONE (07:52)
[2021-08-07] MEDS ORDERED: MIDAZOLAM HCL 2 MG/2 ML SINGLE DOSE VIAL ONE ×2 (07:53)
[2021-08-07] MEDS ORDERED: ROCURONIUM BROMIDE 50 MG/5 ML SYRINGE ONE (07:53)
[2021-08-07] MEDS ORDERED: METHYLENE BLUE 50 MG/10 ML AMPUL ONE (08:33)
[2021-08-07] MEDS ORDERED: ceFAZolin SODIUM 1 GM VIAL IVPB ONE (08:50)
[2021-08-07] MEDS ORDERED: NEOSTIGMINE METHYLSULFATE 0.5 MG/ML - 10 ML MDV ONE (12:08)
[2021-08-07] MEDS ORDERED: ACETAMINOPHEN 325 MG TABLET (FP) PO PRN (12:50)
[2021-08-07] MEDS ORDERED: IBUPROFEN 800 MG/8 ML IJ IVPB PRN (12:50)
[2021-08-07] MEDS ORDERED: HYDROmorphone *PCA* 10MG/50ML DISP.SYRIN PCA SCH (13:15)
[2021-08-07] MEDS ORDERED: HYDROmorphone *PCA* 10MG/50ML DISP.SYRIN PCA ONE (13:45)
[2021-08-07] MEDS ORDERED: ONDANSETRON 4 MG/2 ML VIAL ONE (14:54)
[2021-08-07] MEDS ORDERED: ONDANSETRON 4 MG/2 ML VIAL IVPUSH ONE (14:55)
[2021-08-07] MEDS: LACTATED RINGERS SOLUTION 1,000 ML IV SCH (16:08)
[2021-08-07] MEDS: CEFAZOLIN 2 GM in DEXTROSE 5%-WATER - 100 ML IVPB SCH (17:23)
[2021-08-07] MEDS: ONDANSETRON 4 MG/2 ML VIAL IVPUSH PRN (21:04)
[2021-08-07] MEDS: ACETAMINOPHEN 1000 MG/100 ML BAG IVPB PRN (21:34)
[2021-08-08] MEDS: CEFAZOLIN 2 GM in DEXTROSE 5%-WATER - 100 ML IVPB SCH (02:33)
[2021-08-08] MEDS: ACETAMINOPHEN 1000 MG/100 ML BAG IVPB PRN ×2 (03:25→08:35)
[2021-08-08] MEDS: LACTATED RINGERS SOLUTION 1,000 ML IV SCH (03:32)
[2021-08-08] MEDS ORDERED: oxyCODONE HCL 5 MG TABLET PO PRN ×2 (06:00)
[2021-08-08] MEDS ORDERED: ALBUTEROL SO4 HFA INHALER IH PRN (09:03)
[2021-08-08] MEDS ORDERED: PIOGLITAZONE HCL 30 MG TABLET PO ONE (09:10)
[2021-08-08] MEDS: metFORMIN HCL 500 MG TABLET (FP) PO SCH ×2 (10:25→20:50)
[2021-08-08] MEDS: ENOXAPARIN NA (PORCINE) 40 MG/0.4 ML DISP.SYRIN SQ SCH ×2 (10:30)
[2021-08-08 11:33] LABS: HEMATOCRIT 32.9 % (32.4-45.2); HEMOGLOBIN 10.9 GM/dL (10.7-15.3); MCH 27.9 pg (25.7-33.7); MEAN CELL VOLUME 84.4 fl (80-96); MEAN PLT VOLUME 7.3 fl (7.5-11.1); PLATELET COUNT 327 10^3/uL (134-434); RDW 15.2 % (11.6-15.6); WHITE BLOOD COUNT 9.3 K/mm3 (4.0-10.0)
[2021-08-08] MEDS: ONDANSETRON 4 MG/2 ML VIAL IVPUSH PRN (14:47)
[2021-08-08] MEDS ORDERED: PROMETHAZINE HCL 25 MG/1 ML VIAL IVPB PRN (18:53)
[2021-08-08] MEDS ORDERED: METOCLOPRAMIDE HCL INJECTION 10 MG/2 ML VIAL IVPB PRN (19:09)
[2021-08-08] MEDS: ACETAMINOPHEN 1000 MG/100 ML BAG IVPB SCH (19:52)
[2021-08-08] MEDS: GABAPENTIN 100 MG CAPSULE PO SCH (21:55)
[2021-08-08 22:00] LABS: BLOOD UREA NITROGEN 7.6 mg/dL (7-18); CALCIUM 8.9 mg/dL (8.5-10.1)
[2021-08-08] MEDS ORDERED: ATORVASTATIN CA 10 MG TABLET (FP) PO SCH (22:00)
[2021-08-08] MEDS ORDERED: PANTOPRAZOLE SODIUM 40 MG VIAL IVPB SCH (22:00)
[2021-08-08 22:04] LABS: CREATININE 0.7 mg/dL (0.55-1.3)
[2021-08-08] MEDS ORDERED: PANTOPRAZOLE SODIUM 40 MG VIAL IVPUSH SCH (22:04)
[2021-08-08] MEDS: PANTOPRAZOLE SODIUM 40 MG VIAL IVPUSH SCH (22:50)
[2021-08-09] MEDS: SIMETHICONE 80 MG TAB.CHEW (FP) PO PRN ×2 (01:00→06:36)
[2021-08-09] MEDS: ACETAMINOPHEN 1000 MG/100 ML BAG IVPB SCH ×3 (01:05→14:41)
[2021-08-09 09:18] VITALS: BP 125/67; PULSE 82; TEMP 97.8
[2021-08-09] MEDS: ENOXAPARIN NA (PORCINE) 40 MG/0.4 ML DISP.SYRIN SQ SCH (09:44)
[2021-08-09] MEDS: metFORMIN HCL 500 MG TABLET (FP) PO SCH ×2 (09:44→16:13)
[2021-08-09] MEDS: GABAPENTIN 100 MG CAPSULE PO SCH (09:45)
[2021-08-09 09:50] LABS: HEMATOCRIT 31.3 % (32.4-45.2); HEMOGLOBIN 10.4 GM/dL (10.7-15.3); MCH 28.1 pg (25.7-33.7); MCHC 33.3 g/dl (32.0-36.0); MEAN CELL VOLUME 84.4 fl (80-96); MEAN PLT VOLUME 7.5 fl (7.5-11.1); PLATELET COUNT 301 10^3/uL (134-434); RBC 3.71 M/mm3 (3.60-5.2); RDW 15.6 % (11.6-15.6)
[2021-08-09] MEDS: PANTOPRAZOLE SODIUM 40 MG VIAL IVPUSH SCH (09:59)
[2021-08-09 10:00] LABS: CREATININE 0.7 mg/dL (0.55-1.3)
[2021-08-09] MEDS ORDERED: ACETAMINOPHEN 500 MG TABLET (FP) PO PRN (13:12)
== END 2021-08-09 16:10 | disposition home or self-care (01) | DRG 519 ==
LOC: JASUSAT 04:58 → JERBED 04:59 → UNDOADMIN 04:59 → J2C 04:59 → EDSTATUS 08:00 → J3W 15:19
PROVIDERS: ADMIT Obstetrics & Gynecology; ATTEND Obstetrics & Gynecology
PROC: 0UT90ZZ Resection of Uterus, Open Approach (ICD-10-PCS; principal; 2021-08-07 08:00)
PROC: 0UT70ZZ Resection of Bilateral Fallopian Tubes, Open Approach (ICD-10-PCS; 2021-08-07 08:00)
DX: D25.1 Intramural leiomyoma of uterus (principal); N94.6 Dysmenorrhea, unspecified; N92.1 Excessive and frequent menstruation with irregular cycle; Z53.31 Laparoscopic surgical procedure converted to open procedure; E11.9 Type 2 diabetes mellitus without complications
CPT/HCPCS: 36415; 74018-TC-FY; 80048; 82565; 82570; 82962; 84300; 85027; 86850; 86900; 86901; 88307-TC; 94010; 94760; Q9968

== ENCOUNTER 2022-01-29 03:48 | Emergency (ER) | payer OTHER ==
[2022-01-29 03:58] VITALS: BP 114/77; PULSE 73; RESP 18; TEMP 97.7; BMI 37.3
[2022-01-29] MEDS ORDERED: SODIUM CHLORIDE 1,000 ML IV STA (04:27)
[2022-01-29] MEDS ORDERED: ACETAMINOPHEN 1000 MG/100 ML BAG IVPB ONE (04:28)
[2022-01-29] MEDS ORDERED: ONDANSETRON 4 MG/2 ML VIAL IVPUSH ONE (04:30)
[2022-01-29] MEDS ORDERED: ONDANSETRON 4 MG/2 ML VIAL ONE (04:33)
[2022-01-29] MEDS ORDERED: MAG HYDROX/AL HYDROX/SIMETH 30 ML UNIT-DOSE CUP PO ONE (04:35)
[2022-01-29] MEDS ORDERED: FAMOTIDINE 20 MG/50 ML IVPB 20 MG/50 ML MG IVPB ONE ×2 (04:36→04:58)
[2022-01-29] MEDS ORDERED: morphine CARPU-JECT 4 MG/1 ML DISP.SYRIN IVPUSH ONE (04:57)
[2022-01-29] MEDS ORDERED: MAG HYDROX/AL HYDROX/SIMETH 30 ML UNIT-DOSE CUP ONE (04:58)
[2022-01-29] MEDS ORDERED: morphine SULFATE 4 MG/ML VIAL ONE (04:59)
[2022-01-29 05:10] LABS: BASO % 0.6 % (0-2.0); EOS % 0.8 % (0-4.5); HEMATOCRIT 37.6 % (32.4-45.2); HEMOGLOBIN 12.3 GM/dL (10.7-15.3); LYMPH % 17.9 % (8-40); MCH 27.2 pg (25.7-33.7); MCHC 32.7 g/dl (32.0-36.0); MEAN CELL VOLUME 83.2 fl (80-96); MEAN PLT VOLUME 7.8 fl (7.5-11.1); MONO % 6.3 % (3.8-10.2); NEUT % 74.4 % (42.8-82.8); PLATELET COUNT 371 10^3/uL (134-434); RBC 4.53 M/mm3 (3.60-5.2); WHITE BLOOD COUNT 10.2 K/mm3 (4.0-10.0)
[2022-01-29 05:29] LABS: CHLORIDE 105 mmol/L (98-107); SODIUM 138 mmol/L (136-145)
[2022-01-29 05:32] LABS: ALBUMIN 3.9 g/dl (3.4-5.0); ANION GAP 9 MMOL/L (8-16); CALCIUM 10.2 mg/dL (8.5-10.1); CO2 24 mmol/L (21-32); GLUCOSE,RANDOM 150 mg/dL (74-106); LIPASE 125 U/L (73-393); MAGNESIUM 1.6 mg/dL (1.8-2.4)
[2022-01-29 05:35] LABS: CREATININE 0.8 mg/dL (0.55-1.3); SGOT/AST 47 U/L (15-37); SGPT/ALT 29 U/L (13-61)
[2022-01-29 05:37] LABS: BILIRUBIN,TOTAL 0.8 mg/dL (0.2-1); TOT PROT 7.5 g/dl (6.4-8.2)
[2022-01-29 05:38] LABS: ALK PHOS 85 U/L (45-117)
[2022-01-29 05:38] LABS: PH,URINE 5.5 (5.0-8.0); URINE APPEARANCE CLOUDY; URINE BILIRUBIN NEGATIVE (NEGATIVE); URINE COLOR YELLOW; URINE GLUCOSE (UA) NEGATIVE (NEGATIVE); URINE KETONE NEGATIVE (NEGATIVE); URINE LEUK ESTERASE NEGATIVE (NEGATIVE); URINE NITRITE NEGATIVE (NEGATIVE); URINE PROTEIN NEGATIVE (NEGATIVE); URINE UROBILINOGEN 0.2 mg/dL (0.2-1.0)
[2022-01-29] MEDS ORDERED: MAGNESIUM SULF 50% (8.12 MEQ/2 ML-1 GM VIAL) IVPB ONE (05:50)
[2022-01-29] MEDS ORDERED: METHOCARBAMOL 500 MG TABLET PO ONE (06:00)
[2022-01-29] MEDS ORDERED: MAGNESIUM SULFATE IN WATER 2 GM/50 ML IVPB IVPB ONE (06:07)
[2022-01-29] MEDS ORDERED: METHOCARBAMOL 500 MG TABLET ONE (06:07)
== END 2022-01-29 07:03 | disposition home or self-care (01) ==
LOC: JER 03:48
PROC: 3E0333Z Introduction of Anti-inflammatory into Peripheral Vein, Percutaneous Approach (ICD-10-PCS; principal; 2022-01-29)
PROC: 3E033GC Introduction of Other Therapeutic Substance into Peripheral Vein, Percutaneous Approach (ICD-10-PCS; 2022-01-29)
PROC: 3E033NZ Introduction of Analgesics, Hypnotics, Sedatives into Peripheral Vein, Percutaneous Approach (ICD-10-PCS; 2022-01-29)
PROC: 3E033GC Introduction of Other Therapeutic Substance into Peripheral Vein, Percutaneous Approach (ICD-10-PCS; 2022-01-29)
PROC: 3E0337Z Introduction of Electrolytic and Water Balance Substance into Peripheral Vein, Percutaneous Approach (ICD-10-PCS; 2022-01-29)
DX: R10.9 Unspecified abdominal pain (principal)
CPT/HCPCS: 36415; 71045-TC-FY; 80053; 81003; 83690; 83735; 84484; 85025; 87086; 93005; 93010; 99285-25; C9803-CS; U0003; U0005

== ENCOUNTER 2022-02-16 20:28 | Emergency (ER) | payer OTHER ==
[2022-02-16 20:44] VITALS: BP 128/85; PULSE 70; RESP 18; TEMP 98.1; BMI 36.6
[2022-02-16] MEDS ORDERED: DIPHTH,PERTUSS(ACELL),TET 0.5 ML DISP.SYRIN IM ONE ×2 (21:07→21:25)
== END 2022-02-16 21:58 | disposition home or self-care (01) ==
LOC: JERFT 20:28
PROC: 3E0234Z Introduction of Serum, Toxoid and Vaccine into Muscle, Percutaneous Approach (ICD-10-PCS; principal; 2022-02-16)
DX: S61.212A Laceration without foreign body of right middle finger without damage to nail, initial encounter (principal)
CPT/HCPCS: 73130-TC-RT-FY; 90471; 90715; 99284-25

== ENCOUNTER 2023-07-11 12:59 | Emergency (ER) | payer OTHER ==
[2023-07-11 13:06] VITALS: RESP 20; TEMP 98; BMI 32.9
[2023-07-11 14:03] LABS: PH,URINE 8.5 (5.0-8.0); URINE APPEARANCE CLEAR; URINE BILIRUBIN NEGATIVE (NEGATIVE); URINE COLOR YELLOW; URINE GLUCOSE (UA) NEGATIVE (NEGATIVE); URINE KETONE NEGATIVE (NEGATIVE); URINE LEUK ESTERASE NEGATIVE (NEGATIVE); URINE NITRITE NEGATIVE (NEGATIVE); URINE PROTEIN NEGATIVE (NEGATIVE); URINE UROBILINOGEN 0.2 mg/dL (0.2-1.0)
[2023-07-11 14:06] LABS: HCG,QUALITATIVE URINE Negative
[2023-07-11] MEDS ORDERED: ACETAMINOPHEN INJECTION 100 ML IVPB ONE (14:47)
[2023-07-11] MEDS ORDERED: PANTOPRAZOLE SODIUM 40 MG VIAL ONE (14:47)
[2023-07-11 14:55] LABS: BASO % 0.6 % (0-2.0); EOS % 12.1 % (0-4.5); HEMATOCRIT 39.4 % (32.4-45.2); HEMOGLOBIN 13.3 GM/dL (10.7-15.3); LYMPH % 17.1 % (8-40); MCH 29.4 pg (25.7-33.7); MCHC 33.6 g/dl (32.0-36.0); MEAN CELL VOLUME 87.5 fl (80-96); MEAN PLT VOLUME 7.3 fl (7.5-11.1); MONO % 4.5 % (3.8-10.2); NEUT % 65.7 % (42.8-82.8); PLATELET COUNT 332 10^3/uL (134-434); RBC 4.51 M/mm3 (3.60-5.2); RDW 15.4 % (11.6-15.6); WHITE BLOOD COUNT 8.4 K/mm3 (4.0-10.0)
[2023-07-11] MEDS: PANTOPRAZOLE SODIUM 40 MG VIAL IVPUSH ONE (14:56)
[2023-07-11] MEDS: SODIUM CHLORIDE 1,000 ML IV STA (14:56)
[2023-07-11] MEDS: ACETAMINOPHEN 1000 MG/100 ML BAG IVPB ONE (14:56)
[2023-07-11 15:04] LABS: INR 1.17 (0.83-1.09); PROTHROMBIN TIME (PATIENT) 13.6 SEC (9.7-13.0)
[2023-07-11 15:16] LABS: POTASSIUM 5.6 mmol/L (3.5-5.1)
[2023-07-11 15:19] LABS: ALBUMIN 3.6 g/dl (3.4-5.0); BLOOD UREA NITROGEN 17.4 mg/dL (7-18); CALCIUM 9.7 mg/dL (8.5-10.1)
[2023-07-11 15:24] LABS: BILIRUBIN,TOTAL 0.4 mg/dL (0.2-1); TOT PROT 7.8 g/dl (6.4-8.2)
[2023-07-11] MEDS ORDERED: MAG HYDROX/AL HYDROX/SIMETH 30 ML UNIT-DOSE CUP ONE (16:56)
[2023-07-11] MEDS: MAG HYDROX/AL HYDROX/SIMETH -MYLANTA- ORAL SUSPENSION PO ONE (17:00)
[2023-07-11] MEDS ORDERED: FAMOTIDINE 20 MG/50 ML IVPB 20 MG/50 ML MG IVPB ONE (17:51)
[2023-07-11] MEDS: FAMOTIDINE 20 MG/50 ML IVPB 20 MG/50 ML MG IVPB ONE (18:05)
[2023-07-11 18:13] VITALS: BP 123/75; PULSE 77
== END 2023-07-11 18:12 | disposition home or self-care (01) ==
LOC: JER 12:59
PROC: 3E033GC Introduction of Other Therapeutic Substance into Peripheral Vein, Percutaneous Approach (ICD-10-PCS; principal; 2023-07-11)
PROC: 3E033GC Introduction of Other Therapeutic Substance into Peripheral Vein, Percutaneous Approach (ICD-10-PCS; 2023-07-11)
PROC: 3E033NZ Introduction of Analgesics, Hypnotics, Sedatives into Peripheral Vein, Percutaneous Approach (ICD-10-PCS; 2023-07-11)
PROC: 3E0337Z Introduction of Electrolytic and Water Balance Substance into Peripheral Vein, Percutaneous Approach (ICD-10-PCS; 2023-07-11)
DX: R10.13 Epigastric pain (principal)
CPT/HCPCS: 36415; 74177-TC; 76705-TC; 80053; 81003; 83690; 84484; 84703; 85025; 85610; 85730; 87086; 93005; 93010; 99285-25; J0131; Q9967